=== PATIENT | female | born 1950 | race Two or more races ===

== ENCOUNTER 2019-07-08 09:14 | Outpatient (CLI) | payer MEDICARE, SELFPAY ==
--- NOTE | 2019-07-08 09:28 | XR_ITS ---
WS: [id number] THORACIC SPINE TECHNIQUE: AP and lateral views are performed. HISTORY: PAIN IN THORACIC SPINE COMPARISON: None available. Mild curvature of the thoracic spine and increased kyphosis. Mild to moderate diffuse disc space narr owing and osteophytes throughout the thoracic spine. Pedicles are all identified. No bone destruction . XR/XR thoracic spine 3V* [id number] IMPRESSION: Mild to moderate thoracic spondylosis. No destructive process.
--- NOTE | 2019-07-08 09:28 | XR_ITS ---
WS: [id number] LUMBAR SPINE: 3 VIEWS TECHNIQUE: AP, lateral and L5-S1 spot. HISTORY: PAIN IN LUMBAR SPINE COMPARISON: None available. Mild LEFT convex curvature lumbar spine with increased lumbar lordosis. No fractures. 2 mm anterolist hesis of L3. Moderate facet joint arthropathy from L3 to S1. Partially sacralized LEFT L5. No significant loss of disc space height. Mild narrowing of the superior SI joints. XR/XR lumbar spine 2-3V* [id number] IMPRESSION: 1. Mild spondylosis throughout the lumbar spine. No fractures. 2. LEFT L5 sacralization.
== END 2019-07-08 09:15 | disposition home or self-care (01) ==
LOC: RADWPI 09:19
PROVIDERS: Family Provider Internal Medicine; PCP Internal Medicine; Visit Provider Internal Medicine
DX: M47.894 Other spondylosis, thoracic region (principal); M47.896 Other spondylosis, lumbar region; M43.27 Fusion of spine, lumbosacral region; M54.6 Pain in thoracic spine; M54.5 Low back pain
CPT/HCPCS: 72072; 72100

== ENCOUNTER 2019-08-01 13:40 | Outpatient (CLI) | payer MEDICARE, SELFPAY ==
--- NOTE | 2019-08-01 13:53 | XR_ITS ---
WS: [id number] Bone densitometry study History checking bone density FINDINGS: The lumbar spine shows a mean bone mineral density of 1.237 g/cm, T score 0.5, Z score 1.6. Bone density within normal limits.
== END 2019-08-01 13:41 | disposition home or self-care (01) ==
LOC: RADWPI 13:45
PROVIDERS: Family Provider Internal Medicine; PCP Internal Medicine; Visit Provider Internal Medicine
DX: Z78.0 Asymptomatic menopausal state (principal)
CPT/HCPCS: 77080

== ENCOUNTER 2021-12-12 12:27 | Outpatient (CLI) | payer MEDICARE, SELFPAY ==
--- NOTE | 2021-12-12 12:39 | MR_ITS ---
WS: [id number] MRI THORACIC SPINE WITHOUT CONTRAST TECHNIQUE: Sagittal T1, T2 and STIR imaging. Axial T2 imaging. Noncontrast imaging obtained. CLINICAL INFORMATION: DEGENERATIVE DISC DZ COMPARISON: MRI cervical 2017 FINDINGS: Motion artifact degrades some images. Tiny syrinx in the lower cervical and upper thoracic cord extending to approximately T7 level. This m easures 2 to 3 mm in maximum dimension. Cord signal is otherwise normal. Distal cord signal is normal . Cervical syrinx seen on the 2017 cervical MRI poorly visualized on the analytical lab analyst imaging today due to m otion. Tiny central protrusion T1-T2. Mild bilateral T10-T11 bony foraminal narrowing. Moderate facet arthro stephanie lower thoracic spine. Mild thoracic curve. Mild thoracic kyphosis. No acute compression fractures. Mild spondylitic changes . No high-grade central canal narrowing. Normal caliber thoracic aorta. Adrenal glands are normal. Partially visualized mild to moderate central canal stenosis seen in the cervical spine analytical lab analyst imaging at C4-C5. This can be further evaluated cervical spine MRI. MR/MR thoracic spin wo con* [id number] IMPRESSION: 1. Mild thoracic curve with mild thoracic kyphosis. No acute compression fract ures. 2. Tiny central syrinx in the lower cervical and upper thoracic cord measuring 2-3 mm in maximum dimension. Cord signal is otherwise normal. Recommend cervic al spine MRI for further evaluation of the cervical syrinx for comparison to cervical spine MRI. 3. No high-grade central canal stenosis. 4. Moderate facet arthropathy lower thoracic spine. 5. Mild to moderate central canal stenosis in the cervical spine seen on the s cout imaging at C4-C5. This can be further evaluated with cervical spine MRI. 6. Tiny central protrusion T1-T2. Mild bilateral T10-T11 bony foraminal narrow ing.
== END 2021-12-12 12:28 | disposition home or self-care (01) ==
PROVIDERS: PCP Internal Medicine; Visit Provider Internal Medicine
DX: M51.34 Other intervertebral disc degeneration, thoracic region (principal); M40.294 Other kyphosis, thoracic region; M51.24 Other intervertebral disc displacement, thoracic region; M47.814 Spondylosis without myelopathy or radiculopathy, thoracic region
CPT/HCPCS: 72146

== ENCOUNTER 2021-12-25 11:00 | Outpatient (CLI) | payer MEDICARE, SELFPAY ==
--- NOTE | 2021-12-25 11:12 | MR_ITS ---
WS: [id number] MRI CERVICAL SPINE NONCONTRAST TECHNIQUE: Sagittal T1, T2 and STIR imaging. Axial T2, gradient, and fiesta imaging. CLINICAL INFORMATION: SPINAL STENOSIS, CERVICAL COMPARISON: MRI 2017 FINDINGS: Straightening of the normal cervical lordosis. Tiny syrinx within the cervical cord extending into th e thoracic core off the [id number]. Cord signal is otherwise normal. Cervix measures approximately 1.3 mm in maximum AP dimension. Syrinx extends from C4 inferiorly. Susceptibility artifact in the boyd boccipital soft tissues unchanged. C2-C3: Minimal disc bulging. Mild facet arthropathy. Spinal canal and foramen are patent. C3-C4: No significant disc bulging. Mild RIGHT facet arthropathy. Mild RIGHT bony foraminal narrowing . Spinal canal is patent. 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 C4-C5: Disc osteophyte complex with endplate ridging. Central protruding osteophyte with mild central canal stenosis and slight contact of the cervical cord. Moderate LEFT greater than RIGHT bony forami nal narrowing. Moderate facet arthropathy. C5-C6: Disc osteophyte complex with endplate ridging. Mild central canal stenosis. Slight contact of the cervical cord. Severe LEFT and mild RIGHT bony foraminal narrowing. Mild facet arthropathy. C6-C7: Minimal disc bulging. Mild LEFT foraminal narrowing. Spinal canal is patent. C7-T1: Tiny shallow central protrusion. Spinal canal and foramen are patent. Slight anterolisthesis C 7 on T1. Tiny shallow central protrusions in the upper thoracic spine more prominent at T1-T2 with mild centra l canal stenosis. Mild bilateral T1-T2 foraminal narrowing. MR/MR cervical spin wo con* [id number] IMPRESSION: Overall no significant changes compared to 2017. Syrinx appears sta ble. 1. Straightening of the normal cervical lordosis. Moderate spondylitic changes . 2. Tiny syrinx in the cervical cord extending from C4 inferiorly into the uppe r thoracic cord off the [id number]. This measures approximately 1.3 mm in ma ximum dimension. 3. Mild central canal stenosis C4-C5 with central disc osteophyte complex and slight indentation on cervical cord. 4. Mild central canal stenosis C5-C6 with a tiny RIGHT pericentral disc osteop hyte protrusion slightly contacts the cervical cord. 5. Moderate LEFT C4-C5 and severe LEFT C5-C6 bony foraminal narrowing. Mild LE FT C6-C7 foraminal narrowing. 6. 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 7. Small central protrusion T1-T2 with mild central canal stenosis and bilater al foraminal narrowing.
== END 2021-12-25 11:01 | disposition home or self-care (01) ==
LOC: RAD 11:03
PROVIDERS: PCP Internal Medicine; Visit Provider Internal Medicine
DX: M48.02 Spinal stenosis, cervical region (principal); M51.24 Other intervertebral disc displacement, thoracic region
CPT/HCPCS: 72141

== ENCOUNTER 2022-03-06 06:00 | Outpatient (RCR) | payer MEDICARE, SELFPAY | END 2022-03-17 23:59 | disposition home or self-care (01) | LOC: SPT 06:00 | PROVIDERS: PCP Internal Medicine; Visit Provider Internal Medicine | DX: M25.562 Pain in left knee (principal) | CPT/HCPCS: 97110; 97161 ==

== ENCOUNTER 2022-03-18 06:00 | Outpatient (RCR) | payer MEDICARE, SELFPAY | END 2022-04-16 23:59 | disposition home or self-care (01) | LOC: SPT 06:00 | PROVIDERS: PCP Internal Medicine; Visit Provider Internal Medicine | DX: M25.562 Pain in left knee (principal) | CPT/HCPCS: 97110 ==

== ENCOUNTER 2022-07-23 13:19 | Outpatient (CLI) | payer MEDICARE, SELFPAY ==
--- NOTE | 2022-07-23 14:09 | XR_ITS ---
WS: [id number] Right shoulder, 2 views, 07/23/2022 Clinical Data: PAIN IN R SHOULDER Comparison: None. Findings: No fractures or dislocations are seen. The AC joint is normal. The adjacent right clavicle, right sca pula and ribs are normal. The soft tissues are unremarkable. XR/XR shoulder RT min 2V* [id number] Impression: Negative right shoulder.
== END 2022-07-23 13:20 | disposition home or self-care (01) ==
LOC: RAD CLINIC 13:32 → RAD 13:34
PROVIDERS: PCP Internal Medicine; Visit Provider Internal Medicine
DX: M25.511 Pain in right shoulder (principal)
CPT/HCPCS: 73030

== ENCOUNTER 2022-11-20 12:03 | Outpatient (CLI) | payer MEDICARE, SELFPAY ==
--- NOTE | 2022-11-20 12:12 | MM_ITS ---
WS: [id number] BILATERAL SCREENING DIGITAL TOMOSYNTHESIS MAMMOGRAM WITH CAD HISTORY: SCREENING COMPARISON: 11/08/2018 Bilateral CC and MLO views with tomosynthesis and synthetic mammography submitted. Computer aided det ection analyzed. Breast composition: The breasts are heterogeneously dense, which may obscure small masses. No suspici ous masses, microcalcifications or architectural distortion. Benign bilateral calcifications and cammie rial calcifications. MM/[place] [id number] IMPRESSION: BI-RADS: 2-Benign FOLLOW UP: 1 Year Follow-up
== END 2022-11-20 12:04 | disposition home or self-care (01) ==
PROVIDERS: PCP Internal Medicine; Visit Provider Internal Medicine
DX: Z12.31 Encounter for screening mammogram for malignant neoplasm of breast (principal)
CPT/HCPCS: 77063; 77067

== ENCOUNTER 2023-11-25 10:56 | Outpatient (CLI) | payer MEDICARE, SELFPAY ==
--- NOTE | 2023-11-25 11:19 | XR_ITS ---
WS: [id number] Lumbar spine, 3 views, 11/25/2023 Clinical Data: R SCIATICA CHRONIC BACK PAIN Comparison: Lumbar spine, 07/08/2019 Findings: No compression fractures or subluxation is seen. There is degenerative disc narrowing at all levels. There are anterior osteophytes of the lower thoracic vertebral bodies and L1-L4. There is facet joint arthritis at all levels. The transverse processes and SI joints are normal. There is an articulation between the left L5 transverse process and the sacrum. XR/XR lumbar spine 6V w f/e [id number] Impression: Multilevel degenerative disc narrowing and osteoarthritis along with facet join t arthritis.
--- NOTE | 2023-11-25 11:19 | XR_ITS ---
WS: [id number] Right hip, AP and frog-leg views, 11/25/2023 Clinical Data: PAIN IN R HIP Comparison: None. Findings: No fractures or dislocations are seen. The right hip shows no erosion, sclerosis or narrowing. There is loss of the normal spherical shape of the right femoral head and a right acetabular lip.. The soft tissues are not remarkable. The adjacent pelvis is normal. XR/XR hip RT 2-3V wo/w pel* [id number] Impression: Minimal osteoarthritis of the right hip. Tonnis classification: grade 1: sclerosis of femoral head and acetabulum or sli ght joint space narrowing or slight lipping at joint margins
== END 2023-11-25 10:57 | disposition home or self-care (01) ==
LOC: RAD 11:08
PROVIDERS: PCP Internal Medicine; Visit Provider Internal Medicine
DX: M48.061 Spinal stenosis, lumbar region without neurogenic claudication (principal); M25.78 Osteophyte, vertebrae; Q76.49 Other congenital malformations of spine, not associated with scoliosis; M47.896 Other spondylosis, lumbar region; Q65.89 Other specified congenital deformities of hip; M24.851 Other specific joint derangements of right hip, not elsewhere classified; M25.551 Pain in right hip
CPT/HCPCS: 72114; 73502

== ENCOUNTER 2023-12-15 06:00 | Outpatient (RCR) | payer MEDICARE, SELFPAY | END 2023-12-16 23:59 | disposition home or self-care (01) | LOC: GPT 06:00 | PROVIDERS: PCP Internal Medicine; Visit Provider Internal Medicine | DX: M54.9 Dorsalgia, unspecified (principal); G89.29 Other chronic pain | CPT/HCPCS: 97140; 97161; 97535 ==

== ENCOUNTER 2023-12-17 06:00 | Outpatient (RCR) | payer MEDICARE, SELFPAY | END 2024-01-16 23:59 | disposition home or self-care (01) | LOC: GPT 06:00 | PROVIDERS: PCP Internal Medicine; Visit Provider Internal Medicine | DX: M54.9 Dorsalgia, unspecified (principal); G89.29 Other chronic pain | CPT/HCPCS: 97110; 97112; 97140 ==

== ENCOUNTER 2024-01-17 06:00 | Outpatient (RCR) | payer MEDICARE, SELFPAY | END 2024-02-15 23:59 | disposition home or self-care (01) | LOC: GPT 06:00 | PROVIDERS: PCP Internal Medicine; Visit Provider Internal Medicine | DX: M54.9 Dorsalgia, unspecified (principal); G89.29 Other chronic pain | CPT/HCPCS: 97110; 97112; 97164; 97530 ==

== ENCOUNTER 2024-02-16 06:00 | Outpatient (RCR) | payer MEDICARE, SELFPAY | END 2024-03-07 23:59 | disposition home or self-care (01) | LOC: GPT 06:00 | PROVIDERS: PCP Internal Medicine; Visit Provider Internal Medicine | DX: M54.9 Dorsalgia, unspecified (principal); G89.29 Other chronic pain; M46.1 Sacroiliitis, not elsewhere classified; M54.17 Radiculopathy, lumbosacral region | CPT/HCPCS: 97110; 97112; 97140; 97164 ==

== ENCOUNTER → 2024-04-06 09:15 | Outpatient (BNVA) | payer MEDICARE, SELFPAY | PROVIDERS: PCP Internal Medicine; Visit Provider Nurse Practitioner Family | DX: L30.9 Dermatitis, unspecified (principal); L29.89 Other pruritus | CPT/HCPCS: 11104; 99204 ==

== ENCOUNTER → 2024-04-18 08:30 | Outpatient (BNVA) | payer MEDICARE, SELFPAY | PROVIDERS: PCP Internal Medicine; Visit Provider Nurse Practitioner Family | DX: L81.0 Postinflammatory hyperpigmentation (principal) | CPT/HCPCS: 99213 ==

== ENCOUNTER → 2024-06-14 08:13 | Outpatient (BNVA) | payer MEDICARE, SELFPAY | PROVIDERS: PCP Internal Medicine; Visit Provider Nurse Practitioner Family | DX: L81.0 Postinflammatory hyperpigmentation (principal); L30.9 Dermatitis, unspecified | CPT/HCPCS: 11102; 99213 ==